=== PATIENT | male | born 1965 | race Caucasian/White ===

== ENCOUNTER 2017-02-08 08:21 | Emergency (ER) | payer BC ==
[2017-02-08 08:35] VITALS: BP 145/79
--- NOTE | 2017-02-08 08:45 | ERNOTE ---
Head Injury HPI - General Time Seen by Provider: 02/08/17 08:40 Source: patient Exam Limitations: no limitations - Immun/Allergies/Home Medications Immunization: IMMUNIZATION HX Immunizations Up to Date Yes History of Influenza Vaccine Yes Hx Pneumococcal Vaccination Yes Allergies/Adverse Reactions: Allergies Allergy/AdvReac Type Severity Reaction Status Date / Time bee venom (honey bee) Allergy Verified 02/08/17 08:35 Home Medications: HOME MEDICATIONS Aspirin/Acetaminophen/Caffeine [Excedrin Extra Strength] 1 tab PO DAILY PRN [Last Taken Unknown] Atenolol [Tenormin] 100 mg PO BID 06/04/16 [Last Taken Unknown] Atorvastatin Calcium [Lipitor] 40 mg PO HS 06/04/16 [Last Taken Unknown] Calcium Carbonate [Tums] 500 mg PO DAILY 06/04/16 [Last Taken Unknown] Cholecalciferol (Vitamin D3) [Vitamin D3] 1,000 unit PO DAILY 06/04/16 [Last Taken Unknown] Hydrochlorothiazide [Hydrodiuril] 25 mg PO DAILY 06/04/16 [Last Taken Unknown] Levothyroxine Sodium [Synthroid] 75 mcg PO DAILY 06/04/16 [Last Taken Unknown] Losartan Potassium [Cozaar] 100 mg PO DAILY 06/04/16 [Last Taken Unknown] Minoxidil 2.5 mg PO DAILY 06/04/16 [Last Taken Unknown] Pantoprazole Sodium [Protonix] 40 mg PO DAILY 06/04/16 [Last Taken Unknown] buPROPion HCL [Wellbutrin XL] 150 mg PO DAILY 06/04/16 [Last Taken Unknown] Carisoprodol [Soma] 350 mg PO TID PRN 5 Days 02/08/17 [Last Taken Unknown] HYDROcodone/ACETAMINOPHEN [Prim 5-325] 1 - 2 tab PO Q6H PRN #12 tab 02/08/17 [ Last Taken Unknown] - History of Present Illness Narrative: Here for pain in the scapular region. This pain has been there for three days. Ibuprofen and flexeril are NOT helping his pain Review of Systems - Review of Systems Constitutional: Present: no symptoms reported Respiratory: Present: no symptoms reported Cardiology: Present: no symptoms reported Musculoskeletal: Present: See HPI - Patient's Past Medical History Patient History - Medical: Hypothyroidism Patient History - Cardiac/Respiratory: Hypertension, Hyperlipidemia Patient History - Cancer: No Hx of Cancer Patient History - Surgical Procedures: Cholecystectomy, Other Patient History - Other: None - Family History Father Family History - Medical: Other Mother Family History - Medical: Family History - Cardiac/Respiratory: CHF - Social History Living Situations: alone Abuse History: No History of abuse Psych History: No pertinent hx Smoking Status: Current every day smoker Have you smoked in the past 12 months: Yes Do you dip or chew tobacco: No Alcohol Use: occasionally Drug Use: none - Immunizations Immunizations Up to Date: Yes Hx Pneumococcal Vaccination: Yes History of Influenza Vaccine: Yes Physical Exam - Physical Exam General Appearance: Present: wd/wn, alert, no apparent distress Ears, Nose, Throat: Present: normal ENT inspection Neck: Present: normal inspection, nontender Respiratory: Present: no respiratory distress, normal breath sounds, chest nontender, lungs clear Cardiovascular/Chest: Present: regular rate, rhythm, no murmur, normal peripheral pulses Back Exam: Present: normal inspection, other - pt does have muscle spasm on rht left side in the area adjacent to the spine and medial to the left scapula. He is tender there, there are no superficial lesions noted there. ED Progress - Vital Signs Patient's Vital Signs:: I have reviewed the patient's vital signs. Vital Signs: Vital Signs 02/08/17 08:26 Temperature 37.1 C Pulse Rate 73 Respiratory 16 Rate Blood Pressure 145/79 O2 Sat by Pulse 98 Oximetry - Progress/Reassessment Chief Complaint: Neck Pain/Injury Progress:: Unchanged Plan - Plan Plan: pt has muscle spasm and will be treated accordingly Departure Clinical Impression: Muscle spasm of back - Departure Disposition: Home self-care Condition: Good Instructions: Muscle Cramps and Spasms, [id number] Referrals: Jelani Hathaway MD [Primary Care Provider] - Prescriptions: Carisoprodol [Soma] 350 mg PO TID PRN 5 Days PRN Reason: Pain HYDROcodone/ACETAMINOPHEN [Prim 5-325] 1 - 2 tab PO Q6H PRN #12 tab PRN Reason: Pain
[2017-02-08] MEDS ORDERED: KETOROLAC TROMETHAMINE 60 MG/2 ML VIAL IM ONE ×2 (08:47)
--- OUTSIDE RECORDS SUMMARY | 2017-02-08 08:56 | XMS REPORT | Continuity of Care Document ---
:1965 Author Organization [facility] ([facility]) Address [address] [place] [address] Phone [phone] Care Team Providers Name Role Phone Jelani Perales Primary Care Provider [phone] Source Comments This disclosure is being made pursuant to the Care Everywhere program, applicable federal and state laws, and may not contain all informaitonavailable regarding this patient.[facility] ([facility]) Active Allergies and Adverse Reactions Allergen Noted Date Severity Reactions Comments Bee Stings 06/09/2016 Urticaria (Hives),Angioedema Current Medications Prescription Sig. Disp. Refills Start Date End Date Status atenolol 100 mg tablet Take 100 mg by 3 03/24/2016 Active mouth 2 times daily. atorvastatin 40 mg tablet TAKE 1 TABLET 3 03/24/2016 Active (40 MG) BY ORAL ROUTE ONCE DAILY AT BEDTIME FOR 90 DAYS buPROPion (WELLBUTRIN XL) 150 mg daily. 3 03/24/2016 Active 150 mg extended release tablet 24 hour furosemide 40 mg tablet take 1 tablet 0 05/30/2016 Active (40 mg) by oral route 2 times per day hydrochlorothiazide 25 mg take 1 tablet 3 03/24/2016 Active tablet (25 mg) by oral route once daily levothyroxine 75 mcg TAKE 1 TABLET 0 05/30/2016 Active tablet (75 MCG) BY ORAL ROUTE ONCE DAILY losartan 100 mg tablet take 1 tablet 3 03/24/2016 Active (100 mg) by oral route once daily for high BP minoxidil 2.5 mg tablet 1 by mouth 0 05/30/2016 Active twice daily for high blood pressure pantoprazole 40 mg EC 40 mg daily. 0 05/30/2016 Active tablet rhibgnt-[id number] Take 1 tablet Active feine 250-250-65 mg per by mouth as tablet needed. calcium carbonate (200 mg Take 200 mg by Active Ca) 500 mg chewable mouth daily. tablet cholecalciferol (VITAMIN Take 1,000 Active D3) 1,000 unit capsule Units by mouth daily. HYDROcodone-acetaminophen Take 1 tablet 40 tablet 0 07/25/2016 Active 5-325 mg per tablet by mouth every 4 hours as needed. This medication contains Tylenol(Acetami nophen). To avoid overdose, do not take additional Tylenol while using this pain medication. ibuprofen 600 mg tablet Take 1 tablet 50 tablet 3 07/25/2016 Active (600 mg total) by mouth every 6 hours as needed. docusate 100 mg capsule Take 1 capsule 30 capsule 2 07/25/2016 Active (100 mg total) by mouth 2 times daily as needed. Continue taking while on narcotic pain medication. Hold for loose stools. sennosides 8.6 mg tablet Take 1 tablet 30 tablet 2 07/25/2016 Active (8.6 mg total) by mouth 2 times daily. Continue taking while on narcotic pain medication. Hold for loose stools. Active Problems Problem Noted Date S/P cholecystectomy 07/25/2016 Resolved Problems Problem Noted Date Resolved Date Choledocholithiasis 06/09/2016 07/25/2016 Social History Tobacco Use Types Packs/Day Years Used Date Current Every Day Smoker Cigarettes 1 20 Smokeless Tobacco: Never Used Tobacco Cessation:Counseling Given: Yes Comments: Alcohol Use Drinks/Week oz/Week Comments Yes 4 Cans of beer Last Filed Vital Signs Vital Sign Reading Time Taken Blood Pressure 151/86 08/07/2016 10:54 AM CDT Pulse 80 08/07/2016 10:54 AM CDT Temperature 36.5 C (97.7 F) 08/07/2016 10:54 AM CDT Respiratory Rate 16 07/25/2016 6:35 AM CDT Height 1.854 m (6' 0.99") 08/07/2016 10:54 AM CDT Weight 146.8 kg (323 lb 10.2 oz) 08/07/2016 10:54 AM CDT Body Mass Index 42.71 08/07/2016 10:54 AM CDT Oxygen Saturation 95% 07/25/2016 12:30 PM CDT Plan of Care Health Maintenance Due Date Last Done Comments Hepatitis B Vaccine (1 of 3 - Primary Series) 1965 Tdap Vaccine 1978 Lipid Disorder Screening 1985 MMR Vaccine 1985 Td Vaccine 1985 Pneumococcal Vaccine (1 of 1 - PPSV23) 1986 Influenza Vaccine: Seasonal (#1) 06/23/2016 Results from Last 3 Months Not on file
== END 2017-02-08 08:55 | disposition home or self-care (01) ==
LOC: ER 08:21
DX: M62.830 Muscle spasm of back (principal); E03.9 Hypothyroidism, unspecified; I10 Essential (primary) hypertension; E78.5 Hyperlipidemia, unspecified

== ENCOUNTER 2017-09-07 11:18 | Observation (INO) | payer BC ==
--- NOTE | 2017-09-07 11:26 | ERNOTE ---
Medical Problem HPI - Narrative Date of Service: 09/07/17 - General Time Seen by Provider: 09/07/17 11:21 Source: patient Exam Limitations: no limitations - Immun/Allergies/Home Medications Immunizations: IMMUNIZATION HX Immunizations Up to Date Yes History of Influenza Vaccine Yes Hx Pneumococcal Vaccination Yes Allergies/Adverse Reactions: Allergies venom-honey bee [bee venom (honey bee)] Allergy (Verified 02/08/17 08:35) Home Medications: HOME MEDICATIONS Aspirin/Acetaminophen/Caffeine [Excedrin Extra Strength] 1 tab PO DAILY PRN [Last Taken Unknown] Atenolol [Tenormin] 100 mg PO BID 06/04/16 [Last Taken Unknown] Atorvastatin Calcium [Lipitor] 40 mg PO HS 06/04/16 [Last Taken Unknown] Calcium Carbonate [Tums] 500 mg PO DAILY 06/04/16 [Last Taken Unknown] Cholecalciferol (Vitamin D3) [Vitamin D3] 1,000 unit PO DAILY 06/04/16 [Last Taken Unknown] Hydrochlorothiazide [Hydrodiuril] 25 mg PO DAILY 06/04/16 [Last Taken Unknown] Levothyroxine Sodium [Synthroid] 75 mcg PO DAILY 06/04/16 [Last Taken Unknown] Losartan Potassium [Cozaar] 100 mg PO DAILY 06/04/16 [Last Taken Unknown] Minoxidil 2.5 mg PO DAILY 06/04/16 [Last Taken Unknown] Pantoprazole Sodium [Protonix] 40 mg PO DAILY 06/04/16 [Last Taken Unknown] buPROPion HCL [Wellbutrin XL] 150 mg PO DAILY 06/04/16 [Last Taken Unknown] - History of Present History Narrative: Patient presents to our emergency room for chest pain in the substernal region which began at 0 500 this morning. Pain woke the patient up from a deep sleep and he continues to have the pain now as well he describes it at substernally it is constant at a certain level then it becomes potentiated with what the patient calls "twitches" denies any diaphoresis syncope or near syncope or palpitations Review of Systems - Review of Systems Constitutional: Present: no symptoms reported EYE: Present: no symptoms reported ENT: Present: no symptoms reported Respiratory: Present: no symptoms reported Cardiology: Present: See HPI Gastrointestinal/Abdominal: Present: other - H and has been diagnosed by his primary care physician as having gastroesophageal reflux disease as well. Genitourinary: Present: no symptoms reported Musculoskeletal: Present: no symptoms reported Skin: Present: no symptoms reported - Patient's Past Medical History Patient History - Medical: Hypothyroidism Patient History - Cardiac/Respiratory: Hypertension, Hyperlipidemia Patient History - Cancer: No Hx of Cancer Patient History - Surgical Procedures: Cholecystectomy, Other Patient History - Other: None - Family History Father Family History - Medical: Other Mother Family History - Medical: Family History - Cardiac/Respiratory: CHF - Social History Abuse History: No History of abuse Psych History: No pertinent hx - Immunizations Immunizations Up to Date: Yes Hx Pneumococcal Vaccination: Yes History of Influenza Vaccine: Yes Physical Exam - Physical Exam General Appearance: Present: wd/wn, alert, no apparent distress Head Exam: Present: normal inspection, no evidence of injury Ears, Nose, Throat: Present: normal ENT inspection Neck: Present: normal inspection, nontender Respiratory: Present: no respiratory distress, normal breath sounds, no accessory muscle use, chest nontender, lungs clear Cardiovascular/Chest: Present: regular rate, rhythm, no murmur, normal peripheral pulses Gastrointestinal/Abdominal: Present: normal bowel sounds, nontender, nondistended, soft, other - patient's belly is morbidly obese and exam is challenging however the exam is benign Back Exam: Present: normal inspection Extremity Exam: Present: normal inspection, non-tender, normal range of motion ED Progress - Results and Orders Patient's Lab Results:: I have reviewed the patient's lab results. - Vital Signs Patient's Vital Signs:: I have reviewed the patient's vital signs. - EKG EKG: NSR - X-Ray X-Ray #1 X-Ray: chest Plan - Plan Plan: Patient's EKG does not show a STEMI, his first troponin is negative. In light of the fact that he is a male over 40 years of age and hypertensive Dr. Bertha Marquis was consult in regards to admitting this patient for observation patient will be admitted to the [facility] observation unit. Departure Clinical Impression: Chest pain Qualifiers: Chest pain type: unspecified Qualified Code(s): R07.9 - Chest pain, unspecified - Departure Disposition: [facility] Condition: Good Referrals: Jelani Htahaway MD [Primary Care Provider] -
[2017-09-07 11:35] LABS: Hemoglobin 15.5 gm/dL (13.5-18.0); Mean Cell Volume 90.9 fl (78-100); Mean Corpuscular Hemoglobin 32.8 pg (27-31); Mean Platelet Volume 9.8 fl (6.0-9.5); Neutrophil # 15.6 K/mm3 (1.3-6.0); Neutrophil % 82.1 % (42-75.0); Platelet Count 226 K/mm3 (150-450); Red Blood Count 4.73 M/mm3 (4.7-6.0); Red Cell Distribution Width 12.4 % (11.5-14.0)
[2017-09-07] MEDS ORDERED: ASPIRIN 81 MG TAB.CHEW ONE (11:38)
[2017-09-07] MEDS ORDERED: ASPIRIN 81 MG TAB.CHEW PO ONE (11:39)
[2017-09-07 11:58] LABS: ALT 38 U/L (19-67); AST 23 U/L (0-48); Albumin * 3.8 gm/dl (3.4-5.0); Alkaline Phosphatase * 106 U/L (50-170); Anion Gap 15.4 mmol/L (6.8-13.8); BUN/Creatinine Ratio 11.3 (9.0-21.6); Bilirubin, Total 0.7 mg/dL (0.0-1.1); Blood Urea Nitrogen 11 mg/dL (6-23); CKMB 2.7 ng/mL (0.0-9.0); Ca. Corrected For Albumin 9.4 mg/dL (8.4-10.2); Calcium * 9.6 mg/dL (7.9-10.9); Chloride 89 mmol/L (97-106); Glucose * 160 mg/dL (70-110); Potassium 4.4 mmol/L (3.4-4.6); Sodium 126 mmol/L (132-142); Total Protein 8.1 gm/dL (6.2-8.2)
[2017-09-07 12:00] LABS: Troponin I Less than 0.017 ng/ml (0.00-0.10)
[2017-09-07] MEDS ORDERED: NORMAL SALINE 1,000 ML IV PRN (13:08)
[2017-09-07 13:56] VITALS: BP 112/81
[2017-09-07] MEDS ORDERED: NITROGLYCERIN IN 5 % DEXTROSE 50 MG/250 ML INFUS..BTL IV PRN (14:47)
[2017-09-07] MEDS ORDERED: CLOPIDOGREL BISULFATE 75 MG TABLET PO ONE (14:48)
[2017-09-07] MEDS ORDERED: ATORVASTATIN CALCIUM 40 MG TABLET PO STA (14:49)
[2017-09-07] MEDS ORDERED: HEPARIN SODIUM,PORCINE 5,000 UNITS/ML VIAL IV STA (14:51)
[2017-09-07] MEDS ORDERED: HEPARIN SODIUM,PORCINE 5,000 UNITS/ML VIAL ONE (14:53)
--- NOTE | 2017-09-07 15:44 | HP ---
Chief Complaint - Chief Complaint Date of Service: 09/07/17 Time of Service: 15:26 Chief Complaint: Chest pain History of Present Illness: About 6 AM today while asleep he began to have moderate pressure central chest pain radiating to his back. He never had it before. Lieing down or walking to the bathroom made it worse. Sitting up made it better. He had no other associated symptoms. About 11 AM he came to the [facility] ER. There he was given 4 baby aspirin. I was called and told he needed to be admitted to the hospital with a diagnosis of chest pain R/O ischemic heart disease. His chest pain persisted throughout the day at about the same level. About mid afternoon his nurse called me. She told me his telemetry looked like he might be having an NC as did his first EKG from this morning, and she asked me to review his EKGs. I reviewed his EKGs, and found evidence for mild ST elevation in leads II, III , AVF and t wave inversion in the anterior leads. At this point, I arranged for a nitro drip, and IV heparin bolus, po Lipitor, po Plavix and I examined and talked with the patient about urgent transfer to [facility] in [place] for access to a cardiac photo lab manager. I spoke with Dr. Street by phone in the ER there who agreed to accept the patient by transfer. - Patient's Past Medical History Patient History - Medical: Hypothyroidism Patient History - Cardiac/Respiratory: Hypertension, Hyperlipidemia Patient History - Cancer: No Hx of Cancer Patient History - Surgical Procedures: Cholecystectomy, Other Patient History - Other: None - Family History Father Family History - Medical: Other Family History - Cardiac/Respiratory: CVA/Stroke Family History - Cancer: No pertinent family hx Mother Family History - Medical: Family History - Cardiac/Respiratory: CHF Family History - Cancer: Lung - Social History Living Situations: alone Abuse History: No History of abuse Psych History: No pertinent hx Smoking Status: Current every day smoker Have you smoked in the past 12 months: Yes Do you dip or chew tobacco: No Patient requests Smoking Cessation Consult: No Initiate information on Smoking Cessation: No Alcohol Use: occasionally Drug Use: none - Immunizations Immunizations Up to Date: Yes Hx Pneumococcal Vaccination: Yes History of Influenza Vaccine: Yes Review Of Systems (GEN) - Review of Systems Generalized/Overall Review: Present: No Symptoms Reported EENTM: Present: No Symptoms Reported Respiratory: Present: No Symptoms Reported Cardiac: Present: Chest Pain Abdominal: Present: No Symptoms Reported Genitourinary: Present: No Symptoms Reported Musculoskeletal: Present: No Symptoms Reported Neurological: Present: No Symptoms Reported Skin: Present: No Symptoms Reported Endocrine: Present: No Symptoms Reported Misc: All systems neg except as marked Allergies/Adverse Reactions: Allergies Allergy/AdvReac Type Severity Reaction Status Date / Time venom-honey bee Allergy Verified 09/07/17 13:56 [bee venom (honey bee)] Home Medications: HOME MEDICATIONS Aspirin/Acetaminophen/Caffeine [Excedrin Extra Strength] 2 tab PO DAILY PRN [Last Taken Unknown] Atenolol [Tenormin] 100 mg PO BID 06/04/16 [Last Taken Unknown] Calcium Carbonate [Tums] 500 mg PO DAILY 06/04/16 [Last Taken Unknown] Cholecalciferol (Vitamin D3) [Vitamin D3] 1,000 unit PO DAILY 06/04/16 [Last Taken Unknown] Hydrochlorothiazide [Hydrodiuril] 25 mg PO DAILY 06/04/16 [Last Taken Unknown] Levothyroxine Sodium [Synthroid] 88 mcg PO DAILY 06/04/16 [Last Taken Unknown] Losartan Potassium [Cozaar] 100 mg PO DAILY 06/04/16 [Last Taken Unknown] Pantoprazole Sodium [Protonix] 40 mg PO DAILY 06/04/16 [Last Taken Unknown] buPROPion HCL [Wellbutrin XL] 150 mg PO DAILY 06/04/16 [Last Taken Unknown] Exam - Exam Vital Signs: Vital Signs - Last Taken Selected Entries 09/07/17 09/07/17 13:44 15:01 Temperature 36.4 C L Temperature Temporal Artery Source Scan Pulse Rate 73 73 Pulse Rhythm Regular Pulse Strength Normal Respiratory 16 Rate Respiratory Normal Depth Respiratory Normal Effort Non-Labored Respiratory Normal Pattern Blood Pressure 112/81 112/81 Blood Pressure Sitting Position O2 Sat by Pulse 95 Oximetry Oxygen Delivery Room Air Method Constitutional: Present: Alert, Oriented x3, Cooperative, Well developed, No distress, Obese ENT Exam: Present: normal ENT inspection, hearing grossly normal Eye Exam: bilateral eye: normal inspection, PERRL, EOMI Neck: Present: normal inspection Back Exam: Present: normal inspection Respiratory: Present: lungs clear, normal breath sounds Cardiovascular/Chest: Present: regular rate, rhythm, no chest tenderness Abdomen: Present: Normal bowel sounds, soft, nontender, nondistended, no rebound tenderness, no hepatospenomegaly, no masses, obese Extremity: Present: non-tender, lower extremity edema Skin Exam: Present: normal color, warm/dry, no cyanosis Neurologic: Present: alert, oriented x 3 Appearance: Present: appropriate appearance, appropriate insight, neat, no memory impairment Eye contact: Present: cooperative, good eye contact, normal speech, avoids eye contact Thoughts: Present: normal thought pattern Diagnostic Studies: Laboratory Results WBC 19.0 K/mm3 (4.0-10.5) H 09/07/17 11:30 RBC 4.73 M/mm3 (4.7-6.0) 09/07/17 11:30 Hgb 15.5 gm/dL (13.5-18.0) 09/07/17 11:30 Hct 43.0 % (42.0-52.0) 09/07/17 11:30 MCV 90.9 fl (78-100) 09/07/17 11:30 MCH 32.8 pg (27-31) H 09/07/17 11:30 MCHC 36.0 g/dl (32-36) 09/07/17 11:30 RDW 12.4 % (11.5-14.0) 09/07/17 11:30 Plt Count 226 K/mm3 (150-450) 09/07/17 11:30 MPV 9.8 fl (6.0-9.5) H 09/07/17 11:30 Immature Gran % (Auto) 0.80 % (0.001-0.429) H 09/07/17 11:30 Immature Gran # (Auto) 0.15 K/mm3 (0.000-0.0310) H 09/07/17 11:30 Neutrophils % 82.1 % (42-75.0) H 09/07/17 11:30 Lymphocytes % 9.2 % (20-51) L 09/07/17 11:30 Monocytes % 6.2 % (0.0-9) 09/07/17 11:30 Eosinophils % 1.4 % (0.0-3.0) 09/07/17 11:30 Basophils % 0.3 % (0.0-1.0) 09/07/17 11:30 Nucleated RBC % 0.0 k/mm3 (0-1) 09/07/17 11:30 Neutrophils # 15.6 K/mm3 (1.3-6.0) H 09/07/17 11:30 Lymphocytes # 1.8 k/mm3 (1.5-3.5) 09/07/17 11:30 Monocytes # 1.2 k/mm3 (0.0-1.0) H 09/07/17 11:30 Eosinophils # 0.3 k/mm3 (0.0-0.7) 09/07/17 11:30 Absolute Basophils 0.1 k/mm3 (0.0-0.1) 09/07/17 11:30 D-Dimer 0.59 mg/L (0.19-0.49) H 09/07/17 11:30 Sodium 126 mmol/L (132-142) L 09/07/17 11:30 Plasma Sodium 127 mmol/L (130-142) L 09/07/17 11:30 Potassium 4.4 mmol/L (3.4-4.6) 09/07/17 11:30 Chloride 89 mmol/L (97-106) L 09/07/17 11:30 Carbon Dioxide 26.0 mmol/L (24-32.6) 09/07/17 11:30 Anion Gap 15.4 mmol/L (6.8-13.8) H 09/07/17 11:30 BUN 11 mg/dL (6-23) 09/07/17 11:30 Creatinine 0.97 mg/dL (0.4-1.4) 09/07/17 11:30 Est GFR (Non-Af Amer) 87 mL/min (60-130) 09/07/17 11:30 BUN/Creatinine Ratio 11.3 (9.0-21.6) 09/07/17 11:30 Random Glucose 160 mg/dL (70-110) H 09/07/17 11:30 Calcium 9.6 mg/dL (7.9-10.9) 09/07/17 11:30 Calcium Adj for Albumin 9.4 mg/dL (8.4-10.2) 09/07/17 11:30 Total Bilirubin 0.7 mg/dL (0.0-1.1) 09/07/17 11:30 AST 23 U/L (0-48) 09/07/17 11:30 ALT 38 U/L (19-67) 09/07/17 11:30 Alkaline Phosphatase 106 U/L (50-170) 09/07/17 11:30 CK-MB (CK-2) 2.7 ng/mL (0.0-9.0) 09/07/17 11:30 Troponin I Less than 0.017 ng/ml (0.00-0.10) 09/07/17 14:58 Total Protein 8.1 gm/dL (6.2-8.2) 09/07/17 11:30 Albumin 3.8 gm/dl (3.4-5.0) 09/07/17 11:30 Assessment/Plan - Narrative Narrative: Transfer [facility], closest photo lab manager. Heparin, Nitroglycerin, Lipitor, Plavix. I spoke with Dr. Street, receiving doctor in [place]. - Assessment/Plan (1) Acute NC, inferior wall Problem: Acute (2) Acute myocardial ischemia Problem: Acute (3) Obesity (BMI 30.0-34.9) Problem: Chronic (4) Hypertension Problem: Chronic Qualifiers: Hypertension type: essential hypertension Qualified Code(s): I10 - Essential (primary) hypertension (5) Hyperlipidemia Problem: Chronic Qualifiers: Hyperlipidemia type: unspecified Qualified Code(s): E78.5 - Hyperlipidemia , unspecified (6) Leukocytosis Problem: Acute Qualifiers: Leukocytosis type: unspecified Qualified Code(s): D72.829 - Elevated white blood cell count, unspecified (7) Hyponatremia Problem: Acute
[2017-09-08] MEDS ORDERED: LEVOTHYROXINE SODIUM 88 MCG TABLET PO SCH (07:00)
[2017-09-08] MEDS ORDERED: PANTOPRAZOLE SODIUM 40 MG TABLET.EC PO SCH (07:00)
--- NOTE | 2017-09-28 18:02 | DS ---
(1) Acute WA, inferior wall Problem: Acute (2) Acute myocardial ischemia Problem: Acute (3) Obesity (BMI 30.0-34.9) Problem: Chronic (4) Hypertension Problem: Chronic Qualifiers: Hypertension type: essential hypertension Qualified Code(s): I10 - Essential (primary) hypertension (5) Hyperlipidemia Problem: Chronic Qualifiers: Hyperlipidemia type: unspecified Qualified Code(s): E78.5 - Hyperlipidemia , unspecified (6) Leukocytosis Problem: Acute Qualifiers: Leukocytosis type: unspecified Qualified Code(s): D72.829 - Elevated white blood cell count, unspecified (7) Hyponatremia Problem: Acute Description of Stay: Mid afternoon it became clear our patient had an ST segment elevation [place]. He was given IV nitro, heparin, oral lipitor and plavix. All of this was discussed with him. I discussed transfer with Dr. Street at [facility] who agreed to accept him, and we promptly transferred him in stable condition by ambulance. Procedures Performed: none Discharge Disposition: [facility] Disposition: [facility] Condition: Good Discharge Activity: Activity as tolerated Discharge Diet: General/regular food Referrals: Jelani Hathaway MD [Primary Care Provider] - Problem Oriented Discharge Instructions to Patient/Family: Heart Attack, Easy- to-Read Complete Home Medications List: Complete Home Medication List: Aspirin/Acetaminophen/Caffeine [Excedrin Extra Strength] 2 tab PO DAILY PRN Atenolol [Tenormin] 100 mg PO BID 06/04/16 Calcium Carbonate [Tums] 500 mg PO DAILY 06/04/16 Cholecalciferol (Vitamin D3) [Vitamin D3] 1,000 unit PO DAILY 06/04/16 Hydrochlorothiazide [Hydrodiuril] 25 mg PO DAILY 06/04/16 Levothyroxine Sodium [Synthroid] 88 mcg PO DAILY 06/04/16 Losartan Potassium [Cozaar] 100 mg PO DAILY 06/04/16 Pantoprazole Sodium [Protonix] 40 mg PO DAILY 06/04/16 buPROPion HCL [Wellbutrin XL] 150 mg PO DAILY 06/04/16
== END 2017-09-07 15:30 | disposition short-term general hospital (02) ==
LOC: ER 11:18 → MS 12:04
PROVIDERS: ADMIT Allergy & Immunology; ATTEND Allergy & Immunology
DX: I21.19 ST elevation (STEMI) myocardial infarction involving other coronary artery of inferior wall (principal); I10 Essential (primary) hypertension; E66.9 Obesity, unspecified; Z68.30 Body mass index [BMI] 30.0-30.9, adult; F17.210 Nicotine dependence, cigarettes, uncomplicated; D72.829 Elevated white blood cell count, unspecified; E87.1 Hypo-osmolality and hyponatremia; E03.9 Hypothyroidism, unspecified; E78.5 Hyperlipidemia, unspecified
CPT/HCPCS: 36415; 71020; 71275; 80053; 82553; 84484; 85025; 85379; 93005; 96365; 96375; 99284; G0378